=== PATIENT | female | born 1995 | race Caucasian/White ===

== ENCOUNTER 2020-06-14 09:54 | Emergency (ER) | payer OTHER ==
--- NOTE | 2020-06-14 12:17 | EDM.PDOC ---
ED HPI GENERAL MEDICAL PROBLEM - General Chief Complaint: Genitourinary Problem Stated Complaint: STD CHECK Time Seen by Provider: 06/14/20 10:06 Source of Information: Reports: Patient History Limitations: Reports: No Limitations - History of Present Illness INITIAL COMMENTS - FREE TEXT/NARRATIVE: HISTORY AND PHYSICAL: History of present illness: Patient is a 25-year-old female who presents to the ED today with concern of a possible herpes outbreak of her vagina and increase in vaginal discharge. Patient states that a few days ago she started having pain and noticed a rash in her vagina region. Patient states she was seen in the primary care clinic and they did a urinalysis and sent her urine for gonorrhea and chlamydia and told her that she did not have herpes at that time. Patient states that she was placed on an antibiotic for her urinary tract infection and was given a dose of fluconazole for a possible yeast infection. Patient states she was not tested for a yeast infection at that time. Patient states she has been with the same partner for 2 months and has not had any prior STDs. Patient states she feels like she needs a second opinion on a potential herpes outbreak as the other provider who took a looks that it did not look like herpes but patient states that she does believe she does have a herpes outbreak. Patient denies any other symptoms or concerns. Patient denies fever, chills, chest pain, shortness of breath, or cough. Denies headache, neck stiff ness, change in vision, syncope, or near syncope. Denies nausea, vomiting, abdominal pain, diarrhea, constipation, or dysuria. Has not noted any blood in urine or stool. Patient has been eating and drinking appropriately. Review of systems: As per history of present illness and below otherwise all systems reviewed and negative. Past medical history: As per history of present illness and as reviewed below otherwise noncontributory. Surgical history: As per history of present illness and as reviewed below otherwise noncontributory. Social history: See social history for further information Family history: As per history of present illness and as reviewed below otherwise noncontributory. Physical exam: General: Patient is alert, oriented, and in no acute distress. Patient sitting comfortably on exam table. HEENT: Atraumatic, normocephalic, pupils equal and reactive bilaterally, negative for conjunctival pallor or scleral icterus, mucous membranes moist, TMs normal bilaterally, throat clear, neck supple, nontender, trachea midline. No drooling or trismus noted. No meningeal signs. No hot potato voice noted. Lungs: Clear to auscultation, breath sounds equal bilaterally, chest nontender. Heart: S1S2, regular rate and rhythm without overt murmur Abdomen: Soft, nondistended, nontender. Negative for masses or hepatosplenomegaly. Negative for costovertebral tenderness. Pelvis: Stable nontender. Genitourinary: Mortgage Collector at bedside Krystle Landaverde LPN. Ther are multiple round, grouped, 2-3cm superficial ulcers with multiple grouped 2-3cm blisters surrounding the vaginal introitus that painful to palpation. Moderate amount of white discharge in the vaginal vault. Negative cervical motion tenderness. Uterus approximately 6 weeks in size. Rectal: Deferred. Skin: Intact, warm, dry. No lesions or rashes noted. Extremities: Atraumatic, negative for cords or calf pain. Neurovascular unremarkable. Neuro: Awake, alert, oriented. Cranial nerves II through XII unremarkable. Cerebellum unremarkable. Motor and sensory unremarkable throughout. Exam nonfocal. Notes: Discussed importance for follow-up with a women's health provider. Voices understanding and is agreeable to plan of care. Denies any further questions or concerns at this time. Diagnostics: HSV IgM 1 and 2, UA, Uhcg, gonorrhea and chlamydia, vaginal culture, affirm, HSV culture Therapeutics: None Prescription: Acyclovir, Flagyl Impression: Herpes simplex outbreak, genitalia Bacterial Vaginosis Plan: 1. Follow up with women's health provider as discussed. The numbers have been provided above for you to call and establish an appointment time. If you desire full STD testing, you can get this done with a women's health provider or at the [facility]. 2. Return to the ED as needed and as discussed. 3. Take medication as prescribed. Refrain from sexual intercourse until you have the results from STD testing. Inform any partners if testing comes back positive so they can also be tested. Definitive disposition and diagnosis as appropriate pending reevaluation and review of above. - Related Data Allergies Allergy/AdvReac Type Severity Reaction Status Date / Time No Known Allergies Allergy Verified 06/14/20 10:19 Home Meds: Home Meds Acyclovir [Zovirax] 400 mg PO TID 10 Days #30 tab 06/14/20 [Rx] Acyclovir [Zovirax] 400 mg PO TID 10 Days #30 tab 06/14/20 [Rx] Fluconazole [Diflucan] 150 mg PO DAILY 06/14/20 [History] Sulfamethoxazole/Trimethoprim [Sulfamethoxazole-Tmp Ds Tablet] 1 tab PO BID 06/14/20 [History] metroNIDAZOLE [Flagyl] 500 mg PO Q12H 7 Days #14 tab 06/14/20 [Rx] Past Medical History - Infectious Disease History Infectious Disease History: Reports: None Social & Family History - Family History Family Medical History: Noncontributory - Tobacco Use Smoking Status *Q: Current Every Day Smoker Years of Tobacco use: 10 Packs/Tins Daily: 0.3 - Recreational Drug Use Recreational Drug Use: Yes Recreational Drug Type: Reports: Marijuana/Hashish ED ROS GENERAL - Review of Systems Review Of Systems: Comprehensive ROS is negative, except as noted in HPI. ED EXAM, GENERAL - Physical Exam Exam: See Below (see dictation) Course - Vital Signs Last Recorded V/S: Last Vital Signs Temp 97.4 F 06/14/20 10:20 Pulse 77 06/14/20 10:20 Resp 15 06/14/20 10:20 BP 117/71 06/14/20 10:20 Pulse Ox 98 06/14/20 10:20 - Orders/Labs/Meds Orders: Active Orders 24 hr Category Date Time Status CHLAMYDIA AND GONORRHEA BY TMA Stat Lab 06/14/20 11:20 Received CULTURE GENITAL [RM] Stat Lab 06/14/20 11:20 Received HSV AMPLIFIED MOLECULAR [MREF] Stat Lab 06/14/20 11:20 Received Labs: Laboratory Tests 06/14/20 06/14/20 06/14/20 Range/Units 11:20 11:49 11:49 Urine Color YELLOW Urine Appearance CLEAR Urine pH 7.0 (5.0-8.0) Ur Specific [place] 1.020 (1.001-1.035) Urine Protein NEGATIVE (NEGATIVE) mg/dL Urine Glucose (UA) NEGATIVE (NEGATIVE) mg/dL Urine Ketones NEGATIVE (NEGATIVE) mg/dL Urine Occult Blood NEGATIVE (NEGATIVE) Urine Nitrite NEGATIVE (NEGATIVE) Urine Bilirubin NEGATIVE (NEGATIVE) Urine Urobilinogen 0.2 (<2.0) EU/dL Ur Leukocyte Esterase NEGATIVE (NEGATIVE) Urine HCG, Qual NEGATIVE (NEGATIVE) Roxie species DNA NEGATIVE (NEGATIVE) Gardnerella DNA Probe POSITIVE H (NEGATIVE) Trichomonas DNA Probe NEGATIVE (NEGATIVE) Departure - Departure Time of Disposition: 12:19 Disposition: Home, Self-Care 01 Clinical Impression: Herpes simplex, Bacterial vaginosis - Discharge Information Prescriptions: metroNIDAZOLE [Flagyl] 500 mg PO Q12H 7 Days #14 tab Acyclovir [Zovirax] 400 mg PO TID 10 Days #30 tab Acyclovir [Zovirax] 400 mg PO TID 10 Days #30 tab Referrals: PCP,Not In Area [Primary Care Provider] - Forms: ED Department Discharge Additional Instructions: The following information is given to patients seen in the emergency department who are being discharged to home. This information is to outline your options for follow-up care. We provide all patients seen in our emergency department with a follow-up referral. The need for follow-up, as well as the timing and circumstances, are variable depending upon the specifics of your emergency department visit. If you don't have a primary care physician on staff, we will provide you with a referral. We always advise you to contact your personal physician following an emergency department visit to inform them of the circumstance of the visit and for follow-up with them and/or the need for any referrals to a consulting specialist. The emergency department will also refer you to a specialist when appropriate. This referral assures that you have the opportunity for follow-up care with a specialist. All of these measure are taken in an effort to provide you with optimal care, which includes your follow-up. Under all circumstances we always encourage you to contact your private physician who remains a resource for coordinating your care. When calling for follow-up care, please make the office aware that this follow-up is from your recent emergency room visit. If for any reason you are refused follow-up, please contact the [facility] Emergency Department at and asked to speak to the emergency department charge nurse. [facility] [address] [place] [id number] [address] [address] [facility] [address] [place] [address] 1. Follow up with women's health provider as discussed. The numbers have been provided above for you to call and establish an appointment time. If you desire full STD testing, you can get this done with a women's health provider or at the [facility]. 2. Return to the ED as needed and as discussed. 3. Take medication as prescribed. Refrain from sexual intercourse until you have the results from STD testing. Inform any partners if testing comes back positive so they can also be tested. Sepsis Event Note (ED) - Evaluation Sepsis Screening Result: No Definite Risk - Focused Exam Vital Signs: Vital Signs Temp Pulse Resp BP Pulse Ox 06/14/20 10:20 97.4 F 77 15 117/71 98 - My Orders Last 24 Hours: My Active Orders 06/14/20 11:20 CHLAMYDIA AND GONORRHEA BY TMA Stat CULTURE GENITAL [RM] Stat HSV AMPLIFIED MOLECULAR [MREF] Stat - Assessment/Plan Last 24 Hours: My Active Orders 06/14/20 11:20 CHLAMYDIA AND GONORRHEA BY TMA Stat CULTURE GENITAL [RM] Stat HSV AMPLIFIED MOLECULAR [MREF] Stat
== END 2020-06-14 12:40 | disposition home or self-care (01) ==
LOC: MW.ED 09:54
DX: N76.0 Acute vaginitis (principal); A60.04 Herpesviral vulvovaginitis; F17.210 Nicotine dependence, cigarettes, uncomplicated
CPT/HCPCS: 81003; 81025; 87070; 87480; 87491; 87510; 87529; 87591; 87660; 99283